=== PATIENT | male | born 2000 | race Caucasian/White ===

== ENCOUNTER 2021-03-25 17:07 | Emergency (ER) | payer OTHER, BC ==
[2021-03-25] MEDS ORDERED: Boostrix 0.5 ML (Tdap) VIAL ONE (19:13)
[2021-03-25] MEDS ORDERED: Lidocaine 4% Cream 5 GM TUBE w/ Tegaderm ONE (19:13)
[2021-03-25] MEDS ORDERED: Lidocaine 1% w/Epinephrine 1:100K 20 ML VIAL ONE (19:13)
[2021-03-25] MEDS ORDERED: Bacitracin 1 PK ONE (21:15)
[2021-03-25] MEDS ORDERED: Clindamycin 150 MG CAP ONE (21:17)
== END 2021-03-25 21:34 | disposition home or self-care (01) ==
LOC: MADERS 17:07
DX: S91.311A Laceration without foreign body, right foot, initial encounter (principal); W01.118A Fall on same level from slipping, tripping and stumbling with subsequent striking against other sharp object, initial encounter
CPT/HCPCS: 12002; 90471; 90715